=== PATIENT | male | born 1990 | race Caucasian/White ===

== ENCOUNTER 2024-09-11 14:22 | Emergency (ER) | payer SELFPAY ==
--- OUTSIDE RECORDS SUMMARY | 2024-09-11 14:27 | XMS_ITS | Encounter Summary ---
Author Organization [facility] Address [address] [place] [address] Care Team Providers Care Sales Person Name Role Phone Migdalia Gray MD Primary Care Provider Unavaila ble Unknown Pcp, Non Rmg Primary Care Provider Unava Ish Maza MD Primary Care Provider [phone] Encounter Details Date Type Department Care Team ([facility] st Contact Info) Description 03/12/2012 Orders Only [facility] [address] [place] [address] Lynn Paige, SOFT METALS HAND ENGRAVER [address] [facility] [address] [place] [address] Social History Tobacco Use Types Packs/Day Years Used Date Smoking Tobacco: Never Smokeless Tobacco: Never Alcohol Use Standard Drinks/Week Comments Not Asked 0 (1 standard drink = 0.6 oz pur e alcohol) Sex and Gender Information Value Date Recorded Sex Assigned at Not on file Legal Sex Male 10:29 PM EDT Gender Identity Not on file Sexual Orientation Not on file documented as of this encounter Progress Notes * Dulce Huizar - 03/15/2012 8:53 AM ESTQuick Note: Gm stain noted Neg culture noted documented in this encounter Plan of Treatment Not on file documented as of this encounter Procedures * Due to [place] state law, this organization might not be sharing negative HIV tests. Procedure Name Priority Date/Time Associated Diagnosis Comments CULTURE, SYNOVIAL FLUID, AEROBIC W/GRAM STAIN Routine 03/12/2012 9:57 AM EST Bursitis of elbow documented in this encounter Results * Due to [place] state law, this organization might not be sharing negative HIV tests. * CULTURE, SYNOVIAL FLUID, AEROBIC W/GRAM STAIN (03/12/2012 9:57 AM EST) Gram Stain SEE NOTE [facility] Comment: {GRAM STAIN {[id number]) GRAM STAIN MICRO NUMBER: [id number] TEST STATUS: FINAL SPECIMEN SOURCE: FLUID (NOT SPECIFIED) SPECIMEN QUALITY: ADEQUATE GRAM STAIN: Many White blood cells seen Many Red blood cells seen No organisms seen Bacteria culture SEE NOTE [facility] Comment: {CULTURE, AEROBIC BACTERIA {[id number]) CULTURE, AEROBIC BACTERIA MICRO NUMBER: [id number] TEST STATUS: FINAL SPECIMEN SOURCE: FLUID (NOT SPECIFIED) SPECIMEN QUALITY: ADEQUATE RESULT: No Growth 03/12/2012 9:57 AM EST 03/12/2012 1:12 PM EST Narrative Resulting Agency Comment [id number] [facility] SOFT METALS HAND ENGRAVER [facility]ORATORY Final Resu lt [facility] [address] [place] [address] documented in this encounter Visit Diagnoses Diagnosis Bursitis of elbow Olecranon bursitis documented in this encounter Care Teams Sales Person Relationship Specialty Start Date End Date Migdalia Gray MD PCP - General 06/09/05 04/18/15 Unknown Pcp, Non Rmg PCP - General 04/19/15 05/12/17 Ish Burton MD [address] [address] PCP - General Family Medicine 01/11/23 documented as of this encounter
--- OUTSIDE RECORDS SUMMARY | 2024-09-11 14:27 | XMS_ITS | Encounter Summary ---
Author Organization [facility] Address [address] [place] [address] Care Team Providers Care Aircraft Hydraulic Equipment Mechanic Name Role Phone Migdalia Gray Primary Care Provider [phone] Encounter Details Date Type Department Care Team (Late st Contact Info) Description 01/21/2012 Clinical Conversion Encounter GENERAL CONVERSION Finn Jacobson MD [address] [place] [address] Social History Tobacco Use Types Packs/Day Years Used Date Smoking Tobacco: Never Assessed Sex and Gender Information Value Date Recorded Sex Assigned at Not on file Legal Sex Male 5:51 AM EST Gender Identity Not on file Sexual Orientation Not on file documented as of this encounter ED Notes * Finn Jacobson MD - 05/02/2014 3:27 PM EST [id number],CURTIS [place], [place]. Clinical Report - Physicians/Mid Levels [facility] Emergency Department [address] [place] [address] 01/21/2012 Patient: GURPREET SINGH : 1990 Sex: M FC: BCM Arrived- By private vehicle. Historian- patient. HISTORY OF PRESENT ILLNESS Chief complaint- DYSPNEA and hx of right spontaneous pneumothorax. This started yesterday and is still present but is improving. It was gradual in onset. The dyspnea is described as moderate. (n/a). He has had chest discomfort. No cough, sputum production, fever, sweating episodes or wheezing. No chest pain, calf pain or foot swelling. (healthy 21 yo male with a hx of spontaneous pnthx in september 2011 here for eval of onset of SOB and generalized weakness, onset yesterday following a hike. pt states that he is an avid hiker and went on a fairly mild hike yesterday and afterward noticed some sob, fatigue and later onset of right sided chest and back discomfort (non pleuritic) no cough, no fever, no wheezing, similar symptoms to his pneumothorax.). Similar symptoms previously: Once. Recent medical care: Not recently seen/assessed. REVIEW OF SYSTEMS No chills, fatigue, fever, cough or diarrhea. No nausea, vomiting, urinary problems, back pain or joint pain. No neck pain or alteration in mental status. No difficulty walking. All systems otherwise negative, except as recorded above. PAST HISTORY See nurses notes. No history of asthma, pneumonia, renal failure, emphysema or hypertension. No history of diabetes mellitus. SOCIAL HISTORY Nonsmoker. No alcohol use or drug use. ADDITIONAL NOTES The nursing notes have been reviewed. Weight: 72.5 kg stated. Height: 72 inches Per Patient. BMI: 21.7. PHYSICAL EXAM Appearance: Alert. No acute distress. Eyes: Eyes normal inspection. ENT: Pharynx normal. Neck: Normal inspection. CVS: Normal heart rate and rhythm. Heart sounds normal. Pulses normal. Not tachycardic. Respiratory: No respiratory distress. No respiratory distress. Breath sounds normal. No decreased air movement, wheezes, stridor, rales or chest wall tenderness. No rhonchi. Abdomen: Soft. Back: Normal inspection. Skin: Skin warm and dry. Extremities: Extremities exhibit normal ROM. Neuro: Oriented X 3. No motor deficit. No sensory deficit. LABS, X-RAYS, AND EKG EKG: No acute ischemia. Normal EKG. Normal sinus rhythm. Rate: 86. No tachycardia. No atrial fibrillation. No LBBB present or RBBB present. No ST elevation or depression. The study has been independently viewed by me. The EKG appears to be a good tracing. Chest X-ray: Normal lung markings present. No infiltrate. (Findings: The costophrenic angles are clear. No acute infiltrates. Cardiovascular silhouette shows a normal-sized heart and aorta Conclusion: No evidence of acute cardiopulmonary disease). No infiltrate, pneumothorax, pleural effusion or widening of mediastinum. The X-rays were independently viewed by me and interpreted by the radiologist. Laboratory Tests: Laboratory tests have been ordered, with results reviewed and considered in the medical decision making process. PTT: ( IlgRcvd 01/21/2012 15:26) Final results Test Result Flag Units (Reference) PTT 30 L SEC (31.0-40.0) INR: ( [facility] 01/21/2012 15:26) Final results Test Result Flag Units (Reference) INR 0.9 INR (<1.3) BASIC MET PROF-PLASMA: ( [facility] 01/21/2012 15:27) Final results Test Result Flag Units (Reference) SODIUM 139 MMOL/L (135-146) POTASSIUM 3.7 MMOL/L (3.4-5.2) CHLORIDE 102 MMOL/L (98-110) TOTAL CO2 31 MMOL/L (24-32) ANION GAP 6 MMOL/L (2-15) BUN 17 MG/DL (7-20) CREATININE 1.0 MG/DL (0.6-1.3) GLUCOSE 92 MG/DL (70-100) HOURS PC NOT STATED HR CALCIUM 9.1 MG/DL (8.4-10.4) GFR -AMER >60 ML/MIN (>60) GFR NON AFRICN-AMER >60 ML/MIN (>60) CBC WITH DIFF: ( [facility] 01/21/2012 15:10) Final results Test Result Flag Units (Reference) WBC 6.26 K/uL (4.4-11.3) RBC 4.62 M/uL (4.40-6.00) HEMOGLOBIN 13.7 L G/DL (13.8-18.0) HEMATOCRIT 40.0 % (40.0-54.0) MCV 86 FL (80-96) PLATELET COUNT 195 K/uL (150-450) RDW 13.3 % (11.5-13.4) WBC 6.26 K/uL (4.4-11.3) POLYS 51 % (45-74) LYMPHOCYTE 36 % (22-50) MONOCYTE 10 H % (0.7-7.5) EOSINOPHIL 2 % (0-4) BASOPHIL 1 % (0-2) ABSOLUTE GRAN CT 3.20 K/uL (1.4-6.6) ABSOLUTE LYMPH CT 2.28 K/uL (1.2-3.5) ABSOLUTE MONO CT 0.64 H K/uL (0.0-0.5) ABSOLUTE EOS CT 0.10 K/uL (0.00-0.40) ABSOLUTE BASO CT 0.03 K/uL (0.02-0.08) [id number]: ( MsgRcvd 01/21/2012 15:07) Final results Test Result Flag Units (Reference) EXTRA TUBES(HOW MANY) 1 . PROGRESS AND PROCEDURES Patient/family counseled. Additional history sought. Old ED records reviewed. Disposition orders written. Disposition: Condition: good and stable. Discharged. CLINICAL IMPRESSION Chest wall pain. 12 lead EKG performed. INSTRUCTIONS Warnings: GENERAL WARNINGS: Return or contact your physician immediately if your condition worsens or changes unexpectedly, if not improving as expected, or if other problems arise. Your Current Medications: Continue current medications. Your current home medications have been reviewed by the physician. No changes in your current home medications are recommended at this time. CONTINUE TAKING THE FOLLOWING MEDICATIONS: None. (Electronically signed by Finn Jacosbon M.D. 01/23/2012 18:55) THIS DOCUMENT WAS ELECTRONICALLY AUTHENTICATED BY Kavon ON 01/21/2012 14:14:20: documented in this encounter Plan of Treatment Not on file documented as of this encounter Procedures Procedure Name Priority Date/Time Associated Diagnosis Comments URINE SAVE Routine 01/21/2012 4:15 PM EST LABELS FOR EXTRA TUBES Routine 01/21/2012 2:26 PM EST APTT STAT 01/21/2012 2:26 PM EST PROTIME-INR STAT 01/21/2012 2:26 PM EST BASIC METABOLIC PANEL STAT 01/21/2012 2:26 PM EST documented in this encounter Results * Hold Urine Specimen (01/21/2012 4:15 PM EST) Hold Urine Specimen HOLD URINE,JARRETT DEPT SUNQUEST 01/21/2012 4:15 PM EST 01/21/2012 5:04 PM EST Robbin Catherine MD URINE ORDERABLES Final Resu lt Performing Organization Address City/State/[facility] Co de Phone Number SUNQUEST * (ABNORMAL) APTT (01/21/2012 2:26 PM EST) PTT 30(L) 31.0 - 40.0 SEC SUNQUEST 01/21/2012 2:26 PM EST 01/21/2012 3:05 PM EST Angelita Noel MD LAB BLOOD ORDERABLES Final Result Performing Organization Address [facility] Co de Phone Number SUNQUEST * ProTime-INR (01/21/2012 2:26 PM EST) INR 0.9 <1.3 INR SUNQUEST 01/21/2012 2:26 PM EST 01/21/2012 3:05 PM EST Angelita Noel MD LAB BLOOD ORDERABLES Final Result SUNQUEST * Labels for Extra Tubes (01/21/2012 2:26 PM EST) Extra Tubes 1 SUNQUEST 01/21/2012 2:26 PM EST 01/21/2012 3:05 PM EST Angelita Noel MD LAB BLOOD ORDERABLES Final Result SUNQUEST * Basic Metabolic Panel (01/21/2012 2:26 PM EST) Sodium 139 135 - 146 MMOL/L SUNQUEST Potassium, Plasma 3.7 3.4 - 5.2 MMOL/L SUNQUEST Chloride 102 98 - 110 MMOL/L SUNQUEST Total CO2 31 24 - 32 MMOL/L SUNQUEST Anion Gap 6 2 - 15 MMOL/L SUNQUEST BUN 17 7 - 20 MG/DL SUNQUEST Creatinine 1.0 0.6 - 1.3 MG/DL SUNQUEST Glucose, Blood 92 70 - 100 MG/DL SUNQUEST HOURS PC (CONVERSION) NOT STATED HR SUNQUEST Calcium 9.1 8.4 - 10.4 MG/DL SUNQUEST GFR -Amer >60 >60 ML/MIN SUNQUEST GFR Non -Amer >60 >60 ML/MIN SUNQUEST 01/21/2012 2:26 PM EST 01/21/2012 3:05 PM EST Angelita Noel MD LAB BLOOD ORDERABLES Final Result SUNQUEST documented in this encounter Visit Diagnoses Not on filedocumented in this encounter Care Teams Aircraft Hydraulic Equipment Mechanic Relationship Specialty Start Date End Date Migdalia Gray [address] [place] [address] PCP - General 01/25/14 documented as of this encounter
--- OUTSIDE RECORDS SUMMARY | 2024-09-11 14:27 | XMS_ITS | Clinical Summary ---
Author Organization [facility] [employer] Address [address] [place] [address] Care Team Providers Care Wood Mill Supervisor Name Role Phone Pcp, No Primary Care Provider [phone] Allergies No known active allergies Medications Drysol Dab-O-Matic 20 % external solution PLEASE SEE ATTACHED FOR DETAILED DIRECTIONS 2 Active Social History Tobacco Use Types Packs/Day Years Used Date Smoking Tobacco: Never Smokeless Tobacco: Never Sex and Gender Information Value Date Recorded Sex Assigned at Not on file Legal Sex Male 4:26 PM EST Gender Identity Not on file Sexual Orientation Not on file Last Filed Vital Signs Vital Sign Reading Time Taken Comments Blood Pressure 118/88 07/17/2021 4:09 PM EDT Pulse 76 07/17/2021 4:09 PM EDT Temperature 37 C (98.6 F) 07/17/2021 4:09 PM EDT Respiratory Rate 16 07/17/2021 4:09 PM EDT Oxygen Saturation 99% 07/17/2021 4:09 PM EDT Inhaled Oxygen Concentration - - Weight 70.3 kg (155 lb) 07/17/2021 4:09 PM EDT Height 185.4 cm (6' 1 ) 07/17/2021 4:09 PM EDT Body Mass Index 20.45 07/17/2021 4:09 PM EDT Plan of Treatment Health Maintenance Due Date Last Done Comments DTaP/Tdap/Td Vaccines ([facility]) (6 - Tdap) 2000 08/07/1993, 03/12/1991, 05/02/1990, Additional history exists Depression: Screening Annually using PHQ-2/9 in Adults 18 yrs or above (or HM Modifier)([facility]) 08/01/2007 Hepatitis C Virus Infection in Adolescents and Adults: Screening (or Modifier) ([facility]) 08/01/2007 SDOH Screening Reminder: Annually for all adults ([facility]) 08/01/2007 Tobacco Smoking Cessation: i n Adults excluding Women: Behavioral and Pharmacotherapy Interventions ([facility]) 08/01/2007 COVID-19 Vaccine Screening: Initial Series and Booster Status ([facility]) (2023- season) 2023 Flu Vaccination: Yearly for ages 18mos through 64 years (or Modifier)([facility]) 10/16/2024 Zoster/Shingles Vaccine Series Screening: Adults aged 18+ yrs (or HM Modifiers)([facility]) (1 of 2) 08/01/2039 12/16/1994 Pneumococcal Vaccination Screening: Pts 0-19 & 19-49 yrs of age ([facility]) Aged Out No longer eligible based on patient's age to complete this topic Medical Devices Not on file Insurance [place] Care Teams Wood Mill Supervisor Relationship Specialty Start Date End Date Pcp, No PCP - General Family Medicine 03/24/21
--- OUTSIDE RECORDS SUMMARY | 2024-09-11 14:27 | XMS_ITS | Encounter Summary ---
Author Organization [facility] Address [address] [place] [address] Care Team Providers Care Steam Pipe Fitter Name Role Phone Marina Migdalia Prudencio Primary Care Provider [phone] Encounter Details Date Type Department Care Team (Late st Contact Info) Description 09/26/2011 Clinical Conversion Encounter GENERAL CONVERSION Finn Jacobson MD [address] [place] [address] Social History Tobacco Use Types Packs/Day Years Used Date Smoking Tobacco: Never Assessed Sex and Gender Information Value Date Recorded Sex Assigned at Not on file Legal Sex Male 5:51 AM EST Gender Identity Not on file Sexual Orientation Not on file documented as of this encounter ED Notes * Finn Jacobson MD - 05/01/2014 11:50 PM EST [id number],CURTIS [place], [place]. Clinical Report - Physicians/Mid Levels [facility] Emergency Department [address] [place] [address] 09/26/2011 Patient: GURPREET SINGH : 1990 Sex: M FC: WOR Historian- patient. HISTORY OF PRESENT ILLNESS Chief Complaint- Injury to the hand. The injury happened today. The patient sustained a laceration from a knife. Occurred at work. Patient is experiencing mild pain. No other injury. (healthy 21 yo male sustained a laceration to the palm of his left hand whil at work today, cuased by a juke box mechanic type cutting tool.). REVIEW OF SYSTEMS The patient sustained a laceration. He has had tingling and numbness. No swelling, weakness or foreign body. All systems otherwise negative, except as recorded above. PAST HISTORY See nurses notes. The patient's dominant hand is the right. Tetanus immunization status is up-to-date. Additional Surgeries: no known surgeries. SOCIAL HISTORY Nonsmoker. No alcohol use or drug use. ADDITIONAL NOTES The nursing notes have been reviewed. Weight: 70.3 kg stated. Height: 73 inches Per Patient. BMI: 20.5. PHYSICAL EXAM Appearance: Alert. Oriented X3. No acute distress. Head: Head atraumatic. Eyes: Eyes normal inspection. Neck: Normal inspection. CVS: Pulses normal. Not tachycardic. Respiratory: No respiratory distress. Back: ROM normal. Skin: Skin warm and dry. Extremities: Left palm: superficial 1.0 cm laceration of the distal aspect of the palm. Neurovascular intact distally. No limitation in movement. No wrist injury. Extremities otherwise negative. Neuro, Vascular and Tendons: Vascular status intact. No pulse deficit present. Capillary refill not prolonged. Sensation intact. Motor intact. Tendon function intact. No functional tendon deficit. No sensory deficit or weakness. Neuro: Oriented X 3. No motor deficit. No sensory deficit. PROGRESS AND PROCEDURES Course of Care: Superfical laceration with achieved hemostasis. pt applied a type of brown material to the wound reportedly to make the bleeding stop (??do not know what the material was). Wound was copiously irrigated ans washed in the ER with sure clens and sterile NS. No n/v injury or tendon injury indentified. bandaged and dressed.. Patient/family counseled. Additional history sought. Disposition orders written (d/c). Disposition: Condition: good and stable. Discharged. CLINICAL IMPRESSION Laceration. INSTRUCTIONS Protect wound and keep wound area clean. Change dressing daily. You may wash wounds briefly, then dry. (Electronically signed by Finn Jacobson M.D. 09/26/2011 14:57) THIS DOCUMENT WAS ELECTRONICALLY AUTHENTICATED BY Kavon ON 09/26/2011 10:10:11: documented in this encounter Plan of Treatment Not on file documented as of this encounter Visit Diagnoses Not on filedocumented in this encounter Care Teams Steam Pipe Fitter Relationship Specialty Start Date End Date Migdalia Gray [address] [place] [address] PCP - General 01/25/14 documented as of this encounter
--- OUTSIDE RECORDS SUMMARY | 2024-09-11 14:27 | XMS_ITS | Encounter Summary ---
Author Organization [facility] Address [address] [place] [address] Care Team Providers Care Wireless Communications Engineer Name Role Phone Migdalia Gray MD Primary Care Provider Unavaila ble Unknown Pcp, Non Rmg Primary Care Provider Unava ilable Ish Burton MD Primary Care Provider [phone] Encounter Details Date Type Department Care Team (Late st Contact Info) Description 03/22/2008 Orders Only [facility] [address] [place] [phone] Migdalia Gray MD Social History Tobacco Use Types Packs/Day Years Used Date Smoking Tobacco: Never Assessed Sex and Gender Information Value Date Recorded Sex Assigned at Not on file Legal Sex Male 10:29 PM EDT Gender Identity Not on file Sexual Orientation Not on file documented as of this encounter Plan of Treatment Not on file documented as of this encounter Visit Diagnoses Diagnosis Palpitations documented in this encounter Care Teams Wireless Communications Engineer Relationship Specialty Start Date End Date Migdalia Gray MD PCP - General 06/09/05 04/18/15 Unknown Pcp, Non Rmg PCP - General 04/19/15 05/12/17 Ish Burton MD [address] [address] PCP - General Family Medicine 01/11/23 documented as of this encounter
--- OUTSIDE RECORDS SUMMARY | 2024-09-11 14:27 | XMS_ITS | Clinical Summary ---
Author Organization [facility] Address [address] [place] [address] Care Team Providers Care Drapery Hanger Name Role Phone Migdalia Gray Primary Care Provider [phone] Social History Tobacco Use Types Packs/Day Years Used Date Smoking Tobacco: Never Assessed Sex and Gender Information Value Date Recorded Sex Assigned at Not on file Legal Sex Male 5:51 AM EST Gender Identity Not on file Sexual Orientation Not on file Plan of Treatment Health Maintenance Due Date Last Done Comments Blood Pressure 1989 Depression Screening 1993 Hepatitis C Screening 08/01/2007 DTaP,Tdap,and Td Vaccines (1 - Tdap) 2008 COVID-19 Vaccine (2023-2 5 season) 2023 Influenza Vaccine (Season Ended) 2024 Meningococcal B Vaccines Aged Out No longer eligible based on patient's age to complete this topic Meningococcal Vaccines Aged Out No lo nger eligible based on patient's age to complete this topic Pneumococcal Vaccine: Pediat rics (0 to 5 Years) and At-Risk Patients (6 to 64 Years) Aged Out No longer eligible b ased on patient's age to complete this topic Care Teams Drapery Hanger Relationship Specialty Start Date End Date Migdalia Gray [address] [place] [address] PCP - General 01/25/14
--- OUTSIDE RECORDS SUMMARY | 2024-09-11 14:28 | XMS_ITS | Clinical Summary ---
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. 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 Routine health maintenance 11/15/2010 ADD (attention deficit disorder) 11/15/2010 Overview (07/17/2013): , Immunizations Immunization Administration Dates Next Due DTaP 08/07/1993, 1,05/02/1990,01/22/1990, HIB (PRP-T) 11/20/1990,05/02/1990,03/07/1990 ,01/22/1990 Hep B (pedi) 2 Dose 07/25/2001,02/28/2001 IPV 08/07/1993,03/12/1991,01/22/1990 ,1989 MMR 10/10/1994,11/20/1990 Meningococcal ACWY (Menactra) 2007 Td (adult), adsorbed 03/06/2002,09/22/2001 Tdap(Boostrix) 2007 Varicella 12/16/1994 Family History Medical History Relation Name Comments Headache/Migraine Mother history of Heart Disorder Mother MVP and studi ed after arrythmyia with exericse Heart Disorder Paternal grandfather arryt hmyia Relation Name Status Comments Mother Paternal grandfather Social History Tobacco Use Types Packs/Day Years [...] Sign Reading Time Taken Comments Blood Pressure 123/76 02/02/2015 11:11 AM EST Pulse 93 02/02/2015 11:11 AM EST Temperature 36.6 C (97.8 F) 02/02/2015 11:11 AM EST Respiratory Rate 16 02/02/2015 11:11 AM EST Oxygen Saturation 98% 02/02/2015 11:11 AM EST Inhaled Oxygen Concentration - - Weight 70.3 kg (155 lb) 02/02/2015 11:11 AM EST Height 185.4 cm (6' 1 ) 02/02/2015 11:11 AM EST Body Mass Index 20.45 02/02/2015 11:11 AM EST Plan of Treatment Health Maintenance Due Date Last Done Comments Hepatitis C Screening 1989 DTaP/Tdap/Td (7 - Td or Tdap) 07/30/2017 2007, 03/06/2002, 09/22/2001, Additional history exists COVID-19 Vaccine ( season) 2023 Influenza (Season Ended) 2024 Zoster (Shingrix) (1 of 2) 08/01/2039 12/16/1994 Hib Completed 11/20/1990, 04/18, 03/07/1990, Additional history exists Hep B Completed 07/25/2001, 02/28/2001 Meningococcal ACWY Completed 2007 HPV Vaccine Aged Out No longer eligi ble based on patient's age to complete this topic Hep A Aged Out No longer eligi ble based on patient's age to complete this topic Pneumococcal Aged Out No longer eligi ble based on patient's age to complete this topic Insurance [facility] (NETWORK/MH-OUT OF NETWORK) * Guarantor: [id number] [employer] Account Type Relation to Patient Date of Phone Billing Address [employer] [address] [place] [address] WORKERS COMPENSATION [address] [place] [address] Care Teams Accounting File Clerk Relationship Specialty Start Date End Date Ish Burton MD [address] [address] PCP - General Family Medicine 01/11/23
--- OUTSIDE RECORDS SUMMARY | 2024-09-11 14:28 | XMS_ITS | Encounter Summary ---
Author Organization [facility] Address [address] [place] [address] Care Team Providers Care Systems Admin Name Role Phone Migdalia rGay MD Primary Care Provider Unavaila ble Unknown Pcp, Non Rmg Primary Care Provider Unava Ish Maza MD Primary Care Provider [phone] Encounter Details Date Type Department Care Team (Late st Contact Info) Description 06/03/2014 Orders Only [facility] [address] [place] [phone] Hossein Garcia MD [facility] [address] [address] Social History Tobacco Use Types Packs/Day Years [...] as of this encounter Progress Notes * Jodi Hinkle - 06/05/2014 10:22 AM EDTQuick Note: Noted at time of visit documented in this encounter Plan of Treatment Not on file documented as of this encounter Procedures * Due to [place] state law, this organization might not be sharing negative HIV tests. Procedure Name Priority Date/Time Associated Diagnosis Comments STREPTOCOCCUS, GROUP A CULTURE Routine 06/03/2014 3:31 PM EDT Sore throat documented in this encounter Results * Due to [place] state law, this organization might not be sharing negative HIV tests. * STREPTOCOCCUS, GROUP A CULTURE (06/03/2014 3:31 PM EDT) Culture, Streptococci Group A, Throat SEE NOTE [facility] Comment: {STREPTOCOCCUS, GROUP A CULTURE {[id number]) STREPTOCOCCUS, GROUP A CULTURE MICRO NUMBER: [id number] TEST STATUS: FINAL SPECIMEN SOURCE: THROAT SPECIMEN QUALITY: ADEQUATE RESULT: No beta hemolytic Streptococci isolated 06/03/2014 3:31 PM EDT 06/03/2014 9:17 PM EDT Narrative Resulting Agency Comment [id number] Hossein Garcia MD LABORATORY Final Resul t Performing Organization Address City/State/[facility] Co de Phone Number [facility] [address] [place] [address] documented in this encounter Visit Diagnoses Diagnosis Sore throat Acute pharyngitis documented in this encounter Care Teams Systems Admin Relationship Specialty Start Date End Date Migdalia Gray MD PCP - General 06/09/05 04/18/15 Unknown Pcp, Non Rmg PCP - General 04/19/15 05/12/17 Ish Burton MD [address] [id number] PCP - General Family Medicine 01/11/23 documented as of this encounter
--- OUTSIDE RECORDS SUMMARY | 2024-09-11 14:28 | XMS_ITS | Clinical Summary ---
Author Organization [facility] Address [address] [place] [address] Care Team Providers Care Benefits Sales Consultant Name Role Phone Unavailable Primary Care Provider Unavailabl e Social History Tobacco Use Types Packs/Day Years Used Date Smoking Tobacco: Never Assessed Sex and Gender Information Value Date Recorded Sex Assigned at Not on file Legal Sex Male 3:29 PM EDT Gender Identity Not on file Sexual Orientation Not on file Plan of Treatment Health Maintenance Due Date Last Done Comments Hepatitis C Screening 08/01/2007 Periodic Health Exam 08/01/2007 Tetanus Diphtheria and Pertu ssis Vaccines (TD and TDaP) (1 - Tdap) 2008 Influenza (Seasonal) 10/16/2024 HIB Vaccines Aged Out No longer eligi ble based on patient's age to complete this topic HPV Vaccines Aged Out No longer eligi ble based on patient's age to complete this topic Meningococcal Vaccine Aged Out No dharmesh casandra eligible based on patient's age to complete this topic Pneumococcal Vaccine: Pediat rics (0 to 5 Years) and At-Risk Patients (6 to 64 Years) Aged Out No longer eligible b ased on patient's age to complete this topic Insurance [place] TOGETHER WITH [employer]
[2024-09-11 14:29] VITALS: BP 124/76; PULSE 110; RESP 16; TEMP 37.3; O2SAT 100; BMI 21.1
--- NOTE | 2024-09-11 16:13 | USR_ITS ---
PROCEDURE INFORMATION: Exam: US Right Limited Joint or Other Non-Vascular Extremity Structure Exam date and time: 09/11/2024 4:46 PM Age: 34 years old Clinical indication: Swelling; Hip; Right; Additional info: R groin mass/lymph nodes? TECHNIQUE: Imaging protocol: US right limited joint or other nonvascular extremity structure. Real-time ultrasound with image documentation. Exam focused on the area of clinical interest. COMPARISON: No relevant prior studies available. FINDINGS: Soft tissues: Mild subcutaneous soft tissue edema. Other findings: Several enlarged right inguinal lymph nodes are seen, measuring up to 3.9 cm. Diffuse cortical thickening of the enlarged lymph nodes. US/US soft tissue/extremity [id number] IMPRESSION: 1. Right inguinal lymphadenopathy, possibly reactive. Consider either follow-up imaging in 4-6 weeks to evaluate for improvement or tissue sampling to exclude pathology. 2. Mild subcutaneous soft tissue edema.
--- NOTE | 2024-09-11 16:15 | ED_ITS ---
Documented by User: KILEY Alvarez 09/11/24 16:34 HPI - Skin/Abscess/Foreign Bdy 2 General: Chief complaint: Wound/Laceration Stated complaint: rt foot inj / rash Time Seen by Provider: 09/11/24 15:39 Source: patient Mode of arrival: ambulatory Limitations: no limitations History of Present Illness: Patient is a 34-year-old homeless male living in some type of homeless compound off grid here for rash/skin changes. States he recently got diagnosed with Lyme Disease (reportedly tested positive for this) and finished a 17 day course of Doxycycline. States at some point his dorsal right foot got stepped on by a horse and he has been doctoring this at his [place]. He states at some point following all this he began noticing countless very pruritic bites/sores throughout his body mainly to his bilateral legs. He states he is not sure if these are insect bites as he lives outside. States another individual in his camp has MRSA. He states obviously there is a risk for poison oak/sumac/vanita exposure given his situation. States he has had scabies in the past and knows it is not this . He is reporting significant right inguinal lymphadenopathy. He states over the past few days he has felt fatigued and nauseous. No documented fevers. He is tachycardic upon arrival. MD complaint: rash and insect bite/sting Onset (ago): day(s) Location: generalized and RLE Severity: severe Quality: burning and pruritic Pain Consistency: constant Relieving factors: none Exacerbating factors: none Context: recent antibiotic, recent camping and other (homelessness) Associated symptoms: Reports nausea; Deny chills, fever(s) or vomiting Treatments prior to arrival: none Related Data Previous Rx's ?Medication ?Instructions ?Recorded clobetasol 0.05 % topical ointment 1 applic topical BI D 2 weeks #60 09/11/24 grams doxycycline hyclate 100 mg capsule 100 mg PO BID 21 da ys #42 caps 09/11/24 Allergies Allergy/AdvReac Type Severity Reaction Status Date / Time silver (From [employer] Allergy ALGY-Rash Verified 09/11/24 14:32 Mesh) Review of Systems 2 Const: Reports: fatigue; Denies: fever(s), chills, body aches or malaise Eyes: Denies: change in vision ENMT: Denies: throat pain or odynophagia Card: Denies: chest pain Resp: Denies: dyspnea GI: Reports: nausea; Denies: abdominal pain, vomiting, diarrhea or change in bowel habits : Denies: flank pain, difficulty urinating, dysuria, urinary frequency, urinary urgency or urinary hesitancy Musc: Reports: extremity pain; Denies: neck pain, back pain, joint pain or joint swelling Skin/Breast: Reports: rash, pruritus and erythema Neuro: Denies: headache(s), difficulty walking, dizziness or confusion Physical Exam 2 Const: COMMON NORMALS: no acute distress, average body habitus, patient oriented x3, no limitations, alert and well nourished GENERAL APPEARANCE: c ooperative ORIENTATION/CONSCIOUSNESS: Yes awake, Yes oriented to person, Yes oriented to place and Yes oriented to time OTHER: overall appears unclean due to current living situation-sleeps on the ground in the [facility] HENMT: COMMON NORMALS: normocephalic and atraumatic HEAD & SCALP: normal to inspection, normocephalic and atraumatic Neck/C-Spine: GENERAL: No lymphadenopathy Resp: COMMON NORMALS: normal respiratory effort and clear to auscultation bilaterally AUSCULTATION: clear to auscultation bilaterally Cardio: COMMON NORMALS: regular rhythm RATE: tachycardic RHYTHM: regular rhythm Extremity: COMMON NORMALS: no calf tenderness GENERAL: Yes normal exam except as noted OTHER: pt has an extensive dermatitis affecting bilateral LEs mainly to R posterior thigh/groin; he has extensive presumed R inguinal lymphadenopathy; R posterior buttock is extremely cellulitic and warm to the touch with overlying dermatitis; he has countless bite like lesions throughout his body with excoriations Neuro: COMMON NORMALS: patient oriented x3, moves all extremities, no focal motor deficits and no sensory deficits noted SENSORIUM/ORIENTATION: Yes alert, Yes oriented to person, Yes oriented to place and Yes oriented to time Skin: LESIONS: lesion noted RASHES: rashes noted TRAUMA: abrasion (large abrasion dorsal R foot-this does not appear acutely infected) Course 2 Vital Signs: Vital signs: Vital Signs Temperature 99.1 F 09/11/24 14:29 Pulse Rate 117 H 09/11/24 19:10 Respiratory Rate 17 09/11/24 19:10 Blood Pressure 109/59 09/11/24 19:10 Pulse Oximetry 99 09/11/24 19:10 Oxygen Delivery Me thod Room Air 09/11/24 14:29 MDM - Skin/Abscess/Foreign Bdy Lab Data 09/11/24 16:35 09/11/24 16:35 Radiology Impressions Soft Tissue Ultrasound 09/11/24 16:13 IMPRESSION: 1. Right inguinal lymphadenopathy, possibly reactive. Consider either follow-up imaging in 4-6 weeks to evaluate for improvement or tissue sampling to exclude pathology. 2. Mild subcutaneous soft tissue edema. Laboratory Results WBC 11.94 10^3/uL (3.29-11.43) H 09/11/24 16:35 RBC 4.88 10^6/uL (3.85-5.65) 09/11/24 16:35 Hgb 14.30 g/dL (11.27-16.99) 09/11/24 16:35 Hct 43.9 % (37-53) 09/11/24 16:35 MCV 90.0 fl (82-101) 09/11/24 16:35 MCH 29.3 pg (27-33) 09/11/24 16:35 MCHC 32.6 g/dL (30-55) 09/11/24 16:35 RDW 12.5 % (12.1-15.1) 09/11/24 16:35 Plt Count 205 10^3/cmm (157-399) 09/11/24 16:35 MPV 11.5 fL (7.4-10.4) H 09/11/24 16:35 Neut % (Auto) 79.1 % 09/11/24 16:35 Lymph % (Auto) 9.7 % 09/11/24 16:35 [place] % (Auto) 8.8 % 09/11/24 16:35 Eos % (Auto) 1.8 % 09/11/24 16:35 Baso % (Auto) 0.3 % 09/11/24 16:35 Neut # (Auto) 9.43 10^3/uL (1.8-7.7) H 09/11/24 16:35 Lymph # (Auto) 1.2 10^3/uL (0.8-4.8) 09/11/24 16:35 [place] # (Auto) 1.1 10^3/uL (0.2-0.9) H 09/11/24 16:35 Eos # (Auto) 0.2 10^3/uL (0.0-0.8) 09/11/24 16:35 Baso # (Auto) 0.0 10^3/uL (0.0-0.1) 09/11/24 16:35 Nucleated RBC % (auto) 0 % 09/11/24 16:35 Nucleated RBCs # 0.0 /100WBC 09/11/24 16:35 ESR 1 mm/hr (0-10) 09/11/24 16:35 Sodium 139 mmol/L (136-145) 09/11/24 16:35 Potassium 3.7 mmol/L (3.5-5.1) 09/11/24 16:35 Chloride 101 mmol/L (98-107) 09/11/24 16:35 Carbon Dioxide 25 mmol/L (22-29) 09/11/24 16:35 Anion Gap 16.7 (5-19) 09/11/24 16:35 BUN 9 mg/dL (6-20) 09/11/24 16:35 Creatinine 0.8 mg/dL (0.7-1.2) 09/11/24 16:35 GFR Calculation 110.0 mL/min (90-130) 09/11/24 16:35 Glucose 86 mg/dL (65-115) 09/11/24 16:35 Calculated Osmolality 286 mOsm/kg (285-295) 09/11/24 16:35 Lactic Acid 0.9 mmol/L (0.5-2.2) 09/11/24 16:35 Calcium 8.5 mg/dL (8.5-10.5) 09/11/24 16:35 Total Bilirubin 0.5 mg/dL (0.15-1.2) 09/11/24 16:35 AST 24 U/L (0-40) 09/11/24 16:35 ALT 14 U/L (0-41) 09/11/24 16:35 Alkaline Phosphatase 68 U/L (40-130) 09/11/24 16:35 C-Reactive Protein 25.0 mg/L (0.0-4.9) H 09/11/24 16:35 Total Protein 6.5 g/dL (6.6-8.7) L 09/11/24 16:35 Albumin 3.9 g/dL (3.5-5.2) 09/11/24 16:35 Globulin 2.6 g/dL (1.3-4.6) 09/11/24 16:35 Discharge Plan Discharge Patient Disposition: Home Clinical Impression: Acute dermatitis Condition: Stable Prescriptions: New doxycycline hyclate 100 mg capsule 100 mg PO BID 21 Days Qty: 42 0RF clobetasol 0.05 % ointment 1 applic topical BID 14 Days Qty: 60 0RF Rx Instructions: Avoid genitals and face. Apply to torso and extremities twice daily Discharge Orders: Discharge ED (Routine); Ordered 09/11/24 Ordered By: Kyra Jauregui Discharge Diet: Usual diet Discharge Activity: Resume usual activity Patient Instructions: Dermatitis (ED), Patient Portal & Bob Instructions Activity Restrictions/Additional Instructions: Apply steroid cream to torso, extremities. Avoid genitals and face Take antibiotics as directed twice daily. You will need to take a probiotic or utilize active culture yogurt daily to avoid infectious diarrhea Follow-up with a primary care physician to repeat your ultrasound in 4-6 weeks Return to ED for fever, worsening rash Print Language: Chinese Coding Level of Care Code ED Farm Management Teacher for Chg Fwd Documented by User: KILEY Correa 09/12/24 00:50 HPI - Skin/Abscess/Foreign Bdy 2 General: Chief complaint: Wound/Laceration Stated complaint: rt foot inj / rash Time Seen by Provider: 09/11/24 15:39 Related Data Previous Rx's ?Medication ?Instructions ?Recorded clobetasol 0.05 % topical ointment 1 applic topical BI D 2 weeks #60 09/11/24 grams doxycycline hyclate 100 mg capsule 100 mg PO BID 21 da ys #42 caps 09/11/24 Allergies Allergy/AdvReac Type Severity Reaction Status Date / Time silver (From [employer] Allergy ALGY-Rash Verified 09/11/24 14:32 Mesh) Physical Exam 2 Lymph: LYMPHATIC: lymphadenopathy (right) Course 2 Vital Signs: Vital signs: Vital Signs Temperature 99.1 F 09/11/24 14:29 Pulse Rate 117 H 09/11/24 19:10 Respiratory Rate 17 09/11/24 19:10 Blood Pressure 109/59 09/11/24 19:10 Pulse Oximetry 99 09/11/24 19:10 Oxygen Delivery Me thod Room Air 09/11/24 14:29 MDM - Skin/Abscess/Foreign Bdy Medicial Decision Making 34-year-old male, homeless, lives in the [facility] that presents with red areas on torso, lower and upper extremities with insect bites. CRP is elevated. He states he has a history of Lyme's disease when he lived up north in [facility]. We do not have that type of testing here to see if he has an acute infestation of tickborne illness, however his history is not consistent with this. Discussed with him he will need to follow-up with primary care physician. He states he will be in this area for a while, and therefore made referral to case management per patient request. He will utilize antibiotics as directed. Given his lymphadenopathy to his right groin, will cover for lymphogranuloma venereum. No history of recent intercourse. Not noted on ultrasonography with calcifications. All of patient's questions answered to his satisfaction Lab Data 09/11/24 16:35 09/11/24 16:35 Radiology Impressions Soft Tissue Ultrasound 09/11/24 16:13 IMPRESSION: 1. Right inguinal lymphadenopathy, possibly reactive. Consider either follow-up imaging in 4-6 weeks to evaluate for improvement or tissue sampling to exclude pathology. 2. Mild subcutaneous soft tissue edema. Laboratory Results WBC 11.94 10^3/uL (3.29-11.43) H 09/11/24 16:35 RBC 4.88 10^6/uL (3.85-5.65) 09/11/24 16:35 Hgb 14.30 g/dL (11.27-16.99) 09/11/24 16:35 Hct 43.9 % (37-53) 09/11/24 16:35 MCV 90.0 fl (82-101) 09/11/24 16:35 MCH 29.3 pg (27-33) 09/11/24 16:35 MCHC 32.6 g/dL (30-55) 09/11/24 16:35 RDW 12.5 % (12.1-15.1) 09/11/24 16:35 Plt Count 205 10^3/cmm (157-399) 09/11/24 16:35 MPV 11.5 fL (7.4-10.4) H 09/11/24 16:35 Neut % (Auto) 79.1 % 09/11/24 16:35 Lymph % (Auto) 9.7 % 09/11/24 16:35 [place] % (Auto) 8.8 % 09/11/24 16:35 Eos % (Auto) 1.8 % 09/11/24 16:35 Baso % (Auto) 0.3 % 09/11/24 16:35 Neut # (Auto) 9.43 10^3/uL (1.8-7.7) H 09/11/24 16:35 Lymph # (Auto) 1.2 10^3/uL (0.8-4.8) 09/11/24 16:35 [place] # (Auto) 1.1 10^3/uL (0.2-0.9) H 09/11/24 16:35 Eos # (Auto) 0.2 10^3/uL (0.0-0.8) 09/11/24 16:35 Baso # (Auto) 0.0 10^3/uL (0.0-0.1) 09/11/24 16:35 Nucleated RBC % (auto) 0 % 09/11/24 16:35 Nucleated RBCs # 0.0 /100WBC 09/11/24 16:35 ESR 1 mm/hr (0-10) 09/11/24 16:35 Sodium 139 mmol/L (136-145) 09/11/24 16:35 Potassium 3.7 mmol/L (3.5-5.1) 09/11/24 16:35 Chloride 101 mmol/L (98-107) 09/11/24 16:35 Carbon Dioxide 25 mmol/L (22-29) 09/11/24 16:35 Anion Gap 16.7 (5-19) 09/11/24 16:35 BUN 9 mg/dL (6-20) 09/11/24 16:35 Creatinine 0.8 mg/dL (0.7-1.2) 09/11/24 16:35 GFR Calculation 110.0 mL/min (90-130) 09/11/24 16:35 Glucose 86 mg/dL (65-115) 09/11/24 16:35 Calculated Osmolality 286 mOsm/kg (285-295) 09/11/24 16:35 Lactic Acid 0.9 mmol/L (0.5-2.2) 09/11/24 16:35 Calcium 8.5 mg/dL (8.5-10.5) 09/11/24 16:35 Total Bilirubin 0.5 mg/dL (0.15-1.2) 09/11/24 16:35 AST 24 U/L (0-40) 09/11/24 16:35 ALT 14 U/L (0-41) 09/11/24 16:35 Alkaline Phosphatase 68 U/L (40-130) 09/11/24 16:35 C-Reactive Protein 25.0 mg/L (0.0-4.9) H 09/11/24 16:35 Total Protein 6.5 g/dL (6.6-8.7) L 09/11/24 16:35 Albumin 3.9 g/dL (3.5-5.2) 09/11/24 16:35 Globulin 2.6 g/dL (1.3-4.6) 09/11/24 16:35 All radiology interpretation(s) finalized by discharge Discharge Plan Discharge Patient Disposition: Home Clinical Impression: Acute dermatitis Condition: Stable Prescriptions: New doxycycline hyclate 100 mg capsule 100 mg PO BID 21 Days Qty: 42 0RF clobetasol 0.05 % ointment 1 applic topical BID 14 Days Qty: 60 0RF Rx Instructions: Avoid genitals and face. Apply to torso and extremities twice daily Discharge Orders: Discharge ED (Routine); Ordered 09/11/24 Ordered By: Kyra Jauregui Discharge Diet: Usual diet Discharge Activity: Resume usual activity Patient Instructions: Dermatitis (ED), Patient Portal & Bob Instructions Activity Restrictions/Additional Instructions: Apply steroid cream to torso, extremities. Avoid genitals and face Take antibiotics as directed twice daily. You will need to take a probiotic or utilize active culture yogurt daily to avoid infectious diarrhea Follow-up with a primary care physician to repeat your ultrasound in 4-6 weeks Return to ED for fever, worsening rash Print Language: Chinese Coding Level of Care Code ED Farm Management Teacher for Otilia Tesfaye
--- NOTE | 2024-09-11 16:57 | ECG_ITS ---
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
[2024-09-11 17:04] VITALS: BP 129/75; PULSE 102; O2SAT 100
[2024-09-11 17:29] LABS: Basophils % 0.3 %; Eosinophils # 0.2 10^3/uL (0.0-0.8); Eosinophils % 1.8 %; Hematocrit 43.9 % (37-53); Lymphocytes # 1.2 10^3/uL (0.8-4.8); Lymphocytes % 9.7 %; Mean Corpuscular HGB Conc 32.6 g/dL (30-55); Mean Corpuscular Hemoglobin 29.3 pg (27-33); Mean Platelet Volume 11.5 fL (7.4-10.4); Monocytes # 1.1 10^3/uL (0.2-0.9); Monocytes % 8.8 %; Neutrophils # 9.43 10^3/uL (1.8-7.7); Neutrophils % 79.1 %; Nucleated Red Blood Cells % 0 %; Platelet Count 205 10^3/cmm (157-399); Red Blood Count 4.88 10^6/uL (3.85-5.65); Red Cell Distribution Width 12.5 % (12.1-15.1); White Blood Count 11.94 10^3/uL (3.29-11.43)
[2024-09-11 17:30] VITALS: BP 113/53; PULSE 96; O2SAT 100
[2024-09-11 17:30] LABS: Erythrocyte Sedimentation Rate 1 mm/hr (0-10)
[2024-09-11 18:00] VITALS: BP 92/62; PULSE 109; O2SAT 100
[2024-09-11 18:02] LABS: Alanine Aminotransferase 14 U/L (0-41); Albumin Level 3.9 g/dL (3.5-5.2); Alkaline Phosphatase 68 U/L (40-130); Anion Gap 16.7 (5-19); Aspartate Amino Transferase 24 U/L (0-40); Blood Urea Nitrogen 9 mg/dL (6-20); Calcium 8.5 mg/dL (8.5-10.5); Carbon Dioxide 25 mmol/L (22-29); Chloride 101 mmol/L (98-107); Globulin 2.6 g/dL (1.3-4.6); Glucose 86 mg/dL (65-115); Osmolality Calculated 286 mOsm/kg (285-295); Potassium 3.7 mmol/L (3.5-5.1); Sodium 139 mmol/L (136-145); Total Bilirubin 0.5 mg/dL (0.15-1.2); Total Protein 6.5 g/dL (6.6-8.7)
[2024-09-11 18:03] LABS: Lactic Sepsis W/Reflex 0.9 mmol/L (0.5-2.2)
[2024-09-11 18:30] VITALS: BP 117/79; PULSE 108; O2SAT 100
[2024-09-11 19:10] VITALS: BP 109/59; PULSE 117; RESP 17; O2SAT 99
--- NOTE | 2024-09-12 06:23 | PC.NURSE ---
Positive blood culture reported to Dr. Villafuerte . Dr. Villafuerte states doxycycline should cover the bacteria and no new orders are needed at this time.
--- NOTE | 2024-09-16 07:15 | DCPLANNER ---
Lanie sent to clinics to establish a [id number]-old male, homeless, lives in the [facility] that presents with red areas on torso, lower and upper extremities with insect bites. CRP is elevated. He states he has a history of Lyme's disease when he lived up north in [facility]. We do not have that type of testing here to see if he has an acute infestation of tickborne illness, however his history is not consistent with this. Discussed with him he will need to follow-up with primary care physician. He states he will be in this area for a while, and therefore made referral to case management per patient request. He will utilize antibiotics as directed. Given his lymphadenopathy to his right groin, will cover for lymphogranuloma venereum. No history of recent intercourse. Not noted on ultrasonography with calcifications. All of patient's questions answered to his satisfaction
== END 2024-09-11 19:11 | disposition home or self-care (01) ==
PROVIDERS: Emergency Provider Physician Assistant
DX: L30.8 Other specified dermatitis (principal); Z59.00 Homelessness unspecified
CPT/HCPCS: 36415; 76882; 80053; 83605; 85025; 85651; 86140; 87040; 87077; 87150; 87186; 87205; 93005; 99284